=== PATIENT | female | born 1940 | race Hispanic/Latino ===

== ENCOUNTER 2024-04-15 20:19 | Emergency (ER) | payer MEDICARE ==
[~2024-04-15] VITALS: Ht 162.6 cm; Wt 59.0 kg
[2024-04-15] MEDS ORDERED: ONDANSETRON HCL INJ 2MG/ML 2ML 2 MG/ML VIAL IV PRN (21:00)
[2024-04-15] MEDS ORDERED: SODIUM CHLORIDE 0.9% 1000ML 1,000 ML IV SCH (21:00)
[2024-04-15] MEDS ORDERED: Morphine 4mg INJECTION 4 MG/ML INJ IV PRN (21:00)
[2024-04-15 21:15] VITALS: PULSE 60; RESP 18; TEMP 98.4; O2SAT 99
== END 2024-04-15 21:15 | disposition home or self-care (01) ==
LOC: ER 20:21
DX: S72.091A Other fracture of head and neck of right femur, initial encounter for closed fracture (principal); W18.39XA Other fall on same level, initial encounter; Y92.89 Other specified places as the place of occurrence of the external cause; I10 Essential (primary) hypertension; F03.90 Unspecified dementia, unspecified severity, without behavioral disturbance, psychotic disturbance, mood disturbance, and anxiety
CPT/HCPCS: 99281

== ENCOUNTER → 2024-04-15 | Outpatient (REF) | payer MEDICARE | LOC: RAD 14:58 | PROVIDERS: ATTEND Internal Medicine | DX: S73.101A Unspecified sprain of right hip, initial encounter (principal) ==